=== PATIENT | female | born 1960 | race Caucasian/White ===

== ENCOUNTER → 2016-11-28 | Outpatient (CLI) | payer OTHER | LOC: KOH-I 15:30 | DX: M25.532 Pain in left wrist (principal) | CPT/HCPCS: 73110 ==

== ENCOUNTER → 2022-03-10 | Outpatient (CLI) | payer OTHER ==
[2022-03-11 12:15] LABS: CREATININE, URINE 60.2 mg/dL (Not Estab.)
== END ==
LOC: US 09:24
PROVIDERS: Internal Medicine Nephrology
DX: R80.9 Proteinuria, unspecified (principal); N18.2 Chronic kidney disease, stage 2 (mild); N28.9 Disorder of kidney and ureter, unspecified
CPT/HCPCS: 36415; 80048; 81001; 82043; 82570; 84156